=== PATIENT | female | born 1990 | race Caucasian/White ===

== ENCOUNTER → 2017-09-18 | Outpatient (CLI) | payer OTHER ==
--- NOTE | 2017-09-18 09:02 | DIAGNOSTIC IMAGING REPORT ---
THYROID ULTRASOUND HISTORY: TYROID NODULE COMPARISON: None. FINDINGS: Right lobe: 5.7 x 1.6 x 1.2 cm. Multiple nodules. Dominant mildly hypoechoic nodule within the right lobe posteriorly measures 1.2 x 1.0 x 0.8 cm. This contains a few punctate echogenic foci which may represent calcifications. Left lobe: 4.7 x 2.2 x 2.1 cm. Multiple nodules. Dominant nodules are most entirely cystic and measures 2.6 x 1.4 x 1.9 cm. There is also debris, a hypoechoic 1.2 x 0.9 x 0.6 cm nodule containing punctate echogenic foci. Isthmus: 2 mm in thickness. No nodules. IMPRESSION: Multinodular thyroid gland. Dominant right 1.2 cm hypoechoic nodule may contain a few punctate calcifications. Fine-needle aspiration of this lesion is recommended for further evaluation. Electronically signed by: Paxton Gardiner M.D. 09/18/2017 9:00 AM Dictated Date/Time: 09/18/2017 8:57 AM
== END | disposition home or self-care (01) ==
LOC: C.ULTR 08:00
PROVIDERS: ATTEND Family Medicine
DX: E04.2 Nontoxic multinodular goiter (principal); R00.0 Tachycardia, unspecified; R03.0 Elevated blood-pressure reading, without diagnosis of hypertension; R63.4 Abnormal weight loss

== ENCOUNTER → 2017-09-21 | Outpatient (CLI) | payer OTHER ==
--- NOTE | 2017-09-21 15:01 | DIAGNOSTIC IMAGING REPORT ---
ULTRASOUND GUIDED FINE NEEDLE ASPIRATION OF LEFT LOBE CYSTIC LESION CLINICAL HISTORY: CYTOLOGY, FINE NEEDLE ASPIRATE COMPARISON STUDY: Thyroid ultrasound September 18, 2017. PROCEDURE: Sonography of the thyroid gland demonstrated the palpable 2.6 cm cystic lesion within the left thyroid lobe which was targeted for aspiration. Procedure, risks and benefits were discussed with the patient. The patient agreed to the procedure and informed written consent was obtained. The procedure was performed by Dr. Lemons following a timeout. Skin was prepped and draped in sterile fashion and local anesthesia was achieved with 1% lidocaine. Under direct ultrasound guidance, a 25-gauge fine needle aspiration was performed. The lesion was then aspirated to completion with a 22-gauge needle. Samples were deemed preliminarily adequate by pathology. The patient tolerated the procedure well and no immediate complications were evident. IMPRESSION: Successful ultrasound guided fine needle aspiration of 2.6 cm left thyroid lobe cystic lesion. Electronically signed by: Colton Lemons M.D. 09/21/2017 2:59 PM Dictated Date/Time: 09/21/2017 2:57 PM
--- NOTE | 2017-09-21 15:02 | DIAGNOSTIC IMAGING REPORT ---
ULTRASOUND GUIDED FINE NEEDLE ASPIRATION OF 1.2 CM RIGHT LOBE THYROID NODULE CLINICAL HISTORY: Thyroid nodule. COMPARISON STUDY: Thyroid ultrasound September 18, 2017. PROCEDURE: Sonography of the thyroid gland demonstrated the 1.2 cm right lobe thyroid nodule shown on ultrasound of September 18, 2017. This was targeted for fine needle aspiration. The procedure, risks and benefits were discussed with the patient and informed written consent was obtained. The procedure was performed by Dr. Lemons following a timeout. Skin was prepped and draped in sterile fashion and local anesthesia was achieved with 1% lidocaine. Under direct ultrasound guidance, 2 25-gauge fine needle aspirations were performed. Samples were deemed preliminarily adequate by pathology. The patient tolerated the procedure well and no immediate complications were evident. IMPRESSION: Successful ultrasound guided fine needle aspiration of 1.2 cm right lobe thyroid nodule. Electronically signed by: Colton Lemons M.D. 09/21/2017 3:01 PM Dictated Date/Time: 09/21/2017 2:59 PM
== END | disposition home or self-care (01) ==
LOC: C.ULTR 12:43
PROVIDERS: ATTEND Family Medicine
DX: E04.1 Nontoxic single thyroid nodule (principal)

== ENCOUNTER 2022-09-08 07:02 | Inpatient (IN) ==
--- NOTE | 2022-08-27 15:38 | Anesthesiology Consultation ---
Date of Service August 27, 2022 Assessment & Plan (1) Encounter for pre-operative examination: - COVID screening: Per metrologist on 08/27/2022: Travel screen negative, no known COVID-19 positive contacts or current COVID-19 related symptoms in past 2 weeks. To surgeon's discretion if preop COVID testing is needed. Chart Review Chart Review: Acceptable Risk for Surgery and Patient NOT seen in Pre Admission Testing History Surgery Operation Date: 09/08/22 07:30 Proposed Procedures p Section in LD (Delivery of Baby through Abdominal Incision) - Yolie Contreras MD, FACOG Height/Weight Height: 5 ft 4 in Weight: 82.1 kg Allergies Allergy/AdvReac Type Severity Reaction Status Date / Time human papillomavirus Allergy Unknown RASH OVER Verified 08/27/22 14:53 vaccine, quadr ENTIRE BODY [From Gardasil (PF)] Yeast Allergy Unknown SEE NOTES Verified 08/27/22 14:53 Medications Home Medications Medication Instructions Recorded Confirmed Last Taken cetirizine 10 mg tablet (Zyrtec) 10 mg PO HS 01/29/19 08/27/22 03/04/20 docusate sodium 100 mg capsule 100 mg PO HS 09/25/21 08/27/22 Unknown (Colace) prenat.vits,rachele,[id number] 1 tab PO HS 09/25/21 08/27/22 Unknown fluticasone propionate 50 2 spray intranasal UD PRN 06/10/22 08/27/22 Unknown mcg/actuation nasal Congestion spray,suspension breast pump #1 ea 07/03/22 08/21/22 Unknown acetone (urine) test (Ketone Urine #50 ea 07/14/22 08/21/22 Unknown Test strips) blood sugar diagnostic (OneTouch #150 ea 07/14/22 08/21/22 Unknown Verio test strips) blood-glucose meter (OneTouch #1 ea 07/14/22 08/21/22 Unknown Verio Reflect Meter) lancets 33 gauge (OneTouch Delica #150 ea 07/14/22 08/21/22 Unknown Lancets) lansoprazole 30 mg capsule,delayed 30 mg PO HS 08/27/22 08/27/22 Unknown release (Prevacid) Past Medical History Medical History Anxiety NO MEDS FOR/CONTROLLED Attention-deficit disorder Borderline high blood pressure HX OF Environmental allergies MULTIPLE - HX ALLERGY SHOTS - NOT CURRENT Family history of malignant neoplasm of breast Gestational diabetes History of chicken pox Renal calculi HX OF Past Family History Family History Mother Breast cancer, Onset Age: 41 Father Lung cancer Denies family history of Ovarian cancer Prostate cancer Myocardial infarction Colorectal cancer Uterine cancer Past Surgical History Surgical History H/O lithotripsy History of bone marrow biopsy History of intestinal surgery 02/2020 EUA, fistulectomy, seton placement, abscess repair 06/2020 fistula repair at [facility] w/ Dr. Mello 10/2020 different fistula repair w/ Dr. Mello History of urologic surgery X3 FOR KIDNEY STONES Hx of sinus surgery S/P thyroid biopsy HX S/P wisdom tooth extraction HX Status post incision and drainage (01/30/20) I and D left labia 01/30/[address] Villegas Social History Smoking Status: Never smoker Do You Dip or Chew Tobacco: No Hx Alcohol Use: No alcohol intake frequency: holidays/special occasions only Hx Substance Use: No substance use type: does not use
--- NOTE | 2022-09-03 09:12 | History & Physical Report ---
Date of Service September 03, 2022 Assessment & Plan (1) Gestational diabetes mellitus (GDM) affecting , antepartum: (2) Supervision of normal first : Plan Plan for primary c/s. The risks of surgery were discussed with the patient including the risks of anesthesia, bleeding requiring transfusion, infection, poor wound healing, urinary retention, damage to surrounding structures including bowels, bladder, vessels, nerves and ureters that may require further surgery, hospitalization or intervention. The other risks of any surgery were discussed including heart attack, blood clots, stroke or . Discussed risk of injury. Consent reviewed and signed. Questions asked and answered. History of Present Illness Primary Care Provider: Amber Underwood PA-C Patient is a 32yowf with iup at 40 3/7 week for primary elective c/s. Patient has a hx of anal fissures and fistulae and elects to have c/s for delivery. complicated by diet controlled gdm. Last us 08/14 AC 81%, EFW 72% and Delivery Plans Hx thyroid nodules History of anal fissures and fistulae Will want primary C/S to avoid local trauma Schedule at 28wk visit for 39wk -C/S SCHEDULED FOR 09/08/[address] WARD kidney stones 27 weeks [place] [facility] [place]. Needs to get CT scan in hospital per urology GDM w/28wk glucola *Begin monthly Growth US's OB Labs: Blood Type O Positive 01/30/22 Antibody Screen NEGATIVE 01/30/22 Hemoglobin 11.6 g/dl (12.0-16.0) L 06/25/22 Hematocrit 33.5 % (37.0-47.0) L 06/25/22 Mean Corpuscular Volume 88.9 fL (80.0-100.0) 06/10/22 Platelet Count 158 K/uL (130-400) 06/10/22 Rubella IgG Antibody Immune (Immune) 01/30/22 Rapid Plasma Reagin Nonreactive (Nonreactive) 01/30/22 Hepatitis B Surface Antigen. NON-REACTIVE (NON-REACTIVE) 01/30/22 Hepatitis C Antibody (EIA) NON-REACTIVE (NON-REACTIVE) 01/30/22 HIV (1&2) Ag and Ab Confirmation NON-REACTIVE (NON-REACTIVE) 01/30/22 Glucose 1 Hour 50 gm LoadE 166 mg/dl (70-130) H 03/27/22 Maternal Serum Alpha Fetoprotein 70.6 ng/mL 03/27/22 OB Optional Labs: Chlamydia trachomatis RNA Not Detected (NotDetected) 01/30/22 Neisseria gonorrhoeae RNA Not Detected (NotDetected) 01/30/22 Alpha Fetoprotein Triple Screen SEE NOTE 03/27/22 Labs Reviewed: neg cf/sma--ak low risk panorama--ak neg afp--ak passed 16 week 2 hr gtt Allergies Allergy/AdvReac Type Severity Reaction Status Date / Time human papillomavirus Allergy Unknown RASH OVER Verified 09/03/22 15:56 vaccine, quadr ENTIRE BODY [From Gardasil (PF)] Yeast Allergy Unknown SEE NOTES Verified 09/03/22 15:56 Home Medications Medication Instructions Recorded Confirmed Type cetirizine 10 mg tablet (Zyrtec) 10 mg PO HS 01/29/19 09/03/22 History docusate sodium 100 mg capsule 100 mg PO HS 09/25/21 09/03/22 History (Colace) prenat.vits,rachele,[id number]-kmbl-iwbti 1 tab PO HS 09/25/21 09/03/22 History fluticasone propionate 50 2 spray intranasal UD PRN 06/10/22 09/03/22 History mcg/actuation nasal Congestion spray,suspension breast pump #1 ea 07/03/22 09/03/22 Rx acetone (urine) test (Ketone Urine #50 ea 07/14/22 09/03/22 Rx Test strips) blood sugar diagnostic (OneTouch #150 ea 07/14/22 09/03/22 Rx Verio test strips) blood-glucose meter (OneTouch #1 ea 07/14/22 09/03/22 Rx Verio Reflect Meter) lancets 33 gauge (OneTouch Delica #150 ea 07/14/22 09/03/22 Rx Lancets) lansoprazole 30 mg capsule,delayed 30 mg PO HS 08/27/22 09/03/22 History release (Prevacid) Patient History Medical History Anxiety NO MEDS FOR/CONTROLLED Attention-deficit disorder Borderline high blood pressure HX OF Environmental allergies MULTIPLE - HX ALLERGY SHOTS - NOT CURRENT Family history of malignant neoplasm of breast Gestational diabetes History of chicken pox Renal calculi HX OF Surgical History H/O lithotripsy History of bone marrow biopsy History of intestinal surgery 02/2020 EUA, fistulectomy, seton placement, abscess repair 06/2020 fistula [place] [facility] w/ Dr. Mello 10/2020 different fistula repair w/ Dr. Mello History of urologic surgery X3 FOR KIDNEY STONES Hx of sinus surgery S/P thyroid biopsy HX S/P wisdom tooth extraction HX Status post incision and drainage (01/30/20) I and D left labia 01/30/[address] 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: No Beliefs That Will Affect Care: None marital status: marital status details: Karl Bruno (34) [phone] Current Living Situation: Spouse Current Living Situation Comment: lives iwth spouse, no pets current occupational status: employed 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 Feels Safe at Home: Yes Childhood Exposure to Second-Hand Smoke: Yes caffeine: Yes Dental Care, Regularly: Yes Physical Activity Frequency: 3-4 Times per Week Seatbelt Use: always Sunscreen Use: Yes Assistive Devices: Contacts and Glasses CLERK GUIDE History noncontributory Physical Exam Constitutional: WD/WN, vitals as above Respiratory: normal respiratory effort, lungs clear to auscultation Cardiovascular: RRR, no murmur, no edema Gastrointestinal (Abdomen): soft, nt, gravid Psychiatric: A+Ox3, euthymic affect Coding Level of Care Code None Diagnoses Gestational diabetes mellitus (GDM) affecting , antepartum O24.419 Supervision of normal first Z34.00
[~2022-09-08 07:02] MED LIST: CITRIC ACID/SODIUM CITRATE 15 ML UDC PO SCH; LACTATED RINGER'S 1,000 ML IV SCH; cefOXitin 2,000 MG in DEXTROSE 5% 50 ML IV SCH
[2022-09-08] MEDS ORDERED: LACTATED RINGER'S 1,000 ML IV SCH ×2 (07:30→10:48)
[2022-09-08] MEDS ORDERED: ceFAZolin 2000MG 2,000 MG/15 ML SYR IV SCH (07:35)
[2022-09-08 07:53] LABS: Basophils # (auto) 0.04 K/uL (0-0.2); Basophils % (auto) 0.6 %; Eosinophils # (auto) 0.06 K/uL (0-0.50); Eosinophils % (auto) 0.9 %; Hematocrit (blood only) 33.5 % (37.0-47.0); Hemoglobin 11.4 g/dl (12.0-16.0); Immature Granulocytes % (auto) 3.1 %; Lymphocytes % (auto) 34.6 %; Mean Corpuscular Hemoglobin 28.7 pg (25.0-34.0); Mean Corpuscular Volume 84.4 fL (80.0-100.0); Mean Platelet Volume 10.6 fL (9.4-12.4); Monocytes # (auto) 0.61 K/uL (0.11-0.59); Monocytes % (auto) 9.6 %; Neutrophils # (auto) 3.25 K/uL (1.40-6.50); Neutrophils % (auto) 51.2 %; Platelet Count 107 K/uL (130-400); RDW Coefficient of Variation 14.6 % (11.5-14.5); RDW Standard Deviation 44.5 fL (36.4-46.3); Red Blood Count 3.97 M/uL (4.20-5.40); White Blood Count 6.36 K/ul (4.8-10.8)
[2022-09-08] MEDS ORDERED: MoRPHine SULFATE PF 1 MG/ML 10 ML AMP/VIAL ONE (08:53)
[2022-09-08] MEDS ORDERED: OXYTOCIN 10 UNITS/ML VIAL ONE (08:53)
[2022-09-08] MEDS ORDERED: fentaNYL citrate PF 100 MCG/2 ML VIAL ONE (08:53)
[2022-09-08] MEDS ORDERED: PHENYLEPHRINE HCL 10 MG/ML VIAL ONE (08:53)
[2022-09-08 10:43] LABS: Base Excess Cord Arterial Bld -2.8 mEq/L (-9-1.8); CO2 Cord Arterial Blood 58 mmHg (39.1-73.5); HCO3 Cord Arterial Blood 25 mmol/L (19.7-28.5); Oxygen Sat Cord Arterial Blood < 60.0 % (<60); PO2 Cord Arterial Blood 12 mmHg (4.1-31.7); pH Cord Arterial Blood 7.25 (7.1-7.38)
[2022-09-08 10:46] LABS: Base Excess Cord Venous Blood -3.1 mEq/L (-7.7-1.9); Cord Venous Blood HCO3 22 mmol/L (18.4-26.8); Cord Venous Blood PCO2 39 mmHg (30.4-57.2); Cord Venous Blood PO2 32 mmHg (14.1-43.3); Cord Venous Blood pH 7.36 (7.20-7.44); O2 Saturation Cord Venous Bld 66.6 % (<68)
--- NOTE | 2022-09-08 10:46 | Operative Report ---
PG Post Operative Report Pre & Post Diagnosis Operation Date: 09/08/22 08:50 Pre-Op Diagnosis: Intrauterine at 39 weeks. Desires primary section. Post-Op Diagnosis: Intrauterine at 39 weeks. Desires primary section. Delivery of live male child at 1009. I identified the patient and participated in the time-out.: Yes Procedure Operation Date: 09/08/22 08:50 Actual Procedures p Primary low transverse Section in LD (Delivery of Baby through Abdominal Incision), delivery of live male child at 1009 - Yolie Contreras MD, FACOG Surgeon Yolie Contreras MD, FACOG Data Integrity Analyst DR. Kurtz Estimated Blood Loss 600 Findings Consistent with Post-Op Diagnosis viable male infant in cephalic presentation. meconium noted on arom. apgars 8/9. uterus /tubes/ovs normal bilaterally. Fluids 1600cc uop--50cc, clear Specimens placenta Drains north Anesthesia Type Spinal Complications none Disposition Accompanied Patient To Recovery: Yes Disposition: L&D Indications Patient is a 32yowf who desires primary elective c/s. Description of Procedure The patient was taken to the operating room where she was identified verbally and by bracelet. She was seated on the operating table where a spinal anesthetic was placed by anesthesia. She was then placed in the supine position with a leftward tilt. A North catheter was placed sterilely. the patient was prepped and draped in a normal standard fashion. the anesthetic was tested and found to be adequate. A time-out was held, identifying correct patient, procedure, positioning and preoperative antibiotics. There were no concerns. A Pfannenstiel skin incision was made with a knife and taken down to the underlying layer of fascia with the knife and Bovie electrocautery. Bleeding was attended to with the Bovie. The fascia was incised in the midline with the knife and taken out laterally with scissors. The superior edge of the fascial incision was grasped, elevated and the underlying layer of rectus muscle was taken off bluntly and with scissors. In a similar fashion, the inferior edge of the fascial incision was grasped, elevated and the underlying layer of rectus muscle was taken off bluntly and with scissors. The muscles were bluntly in the midline. The peritoneum was entered bluntly. The incision was then stretched. The bladder blade was placed. The vesicouterine peritoneum was identified, entered with scissors and taken out laterally with scissors. The bladder flap was created digitally A hysterotomy incision was scored with a knife and the incision was stretched superiorly and inferiorly with the planer operator's fingers. Meconium noted on entering the uterus. The operators hand was placed into the incision and the head was delivered atraumatically. No nuchal cord. The nose and mouth were bulb suctioned. the rest of the was then delivered without difficulty. The nose and mouth were again bulb suctioned. The cord was clamped and cut and the was then handed off to the awaiting landman for drying and attention. Cord blood and segment were obtained. The placenta was expressed with uterine massage. The uterus was exteriorized an d cleared of all clot and debris with moistened laparotomy sponges. The hysterotomy incision was repaired in two layers, the first in a running locked layer, the second in an imbricating layer. Hemostasis was noted to be good. Posterior cul-de-sac was irrigated and cleared of all clot and debris. The hysterotomy incision was again inspected and found to be hemostatic. the uterus was reinteriorized. Hysterotomy incision was again inspected and found to be hemostatic. Rectus muscles were reapproximated with several interrupted stitches of 0 Vicryl. The fascia was then reapproximated with 0 Vicryl starting at the edges and meeting in the midline. The subcuticular tissues were copiously irrigated and bleeding was attended to with cautery. The skin was then closed with 4-0 Vicryl in a subcuticular fashion. All sponge, lap and needle counts correct x 2. The patient was taken to recovery in stable condition. I attest to the content of the Intraoperative Record and any orders documented therein. Any exceptions are noted below.
[2022-09-08] MEDS ORDERED: diphenhydrAMINE 50 MG/ML VIAL IV PRN (10:47)
[2022-09-08] MEDS ORDERED: ONDANSETRON INJ 2 MG/ML 2 ML VIAL IV PRN ×2 (10:47→10:48)
[2022-09-08] MEDS ORDERED: NALOXONE HCL 1 MG in SODIUM CHLORIDE 0.9% 1000ML 1,000 ML IV PRN (10:47)
[2022-09-08] MEDS ORDERED: HYDROmorphone INJ 0.5 MG/0.5 ML SYR IV PRN (10:47)
[2022-09-08] MEDS ORDERED: NALBUPHINE HCL INJ 10 MG/ML AMP IV PRN (10:47)
[2022-09-08] MEDS ORDERED: MoRPHine SULFATE PF 1 MG/ML 10 ML AMP/VIAL INT SPINAL ONE (10:47)
[2022-09-08] MEDS ORDERED: NALOXONE HCL 0.4 MG/1 ML VIAL/CARP IV PRN (10:47)
[2022-09-08] MEDS ORDERED: LACTATED RINGER'S 500 ML IV PRN (10:47)
[2022-09-08] MEDS ORDERED: ePHEDrine sulfate 50 MG/ML AMP IV PRN (10:47)
[2022-09-08] MEDS ORDERED: NALOXONE HCL 0.08 MG in SYRINGE 1.8 ML IV PRN (10:47)
[2022-09-08] MEDS ORDERED: BENZOCAINE 20% SPRY 85 APPLN/85 GM CAN EXT PRN (10:48)
[2022-09-08] MEDS ORDERED: HYDROCORTISONE ACETATE 25 MG SUPP PR PRN (10:48)
[2022-09-08] MEDS ORDERED: MAGNESIUM HYDROXIDE SUSP 30 ML UDC PO PRN (10:48)
[2022-09-08] MEDS ORDERED: SENNA 8.6 MG TAB PO PRN (10:48)
[2022-09-08] MEDS ORDERED: DIPHTHERIA/TETANUS/PERTUSSIS Vaccine (Tdap, Age 7+yrs) 0.5mL SYR/VL IM ONE (10:48)
[2022-09-08] MEDS ORDERED: FLUTICASONE PROPIONATE NA SPR 16 GM BTL PRN (10:48)
[2022-09-08] MEDS ORDERED: NO NARCOTICS OR SEDATIVES SCH (11:00)
[2022-09-08] MEDS ORDERED: SODIUM CHLORIDE 0.9% 1000ML 1,000 ML IV SCH (11:00)
[2022-09-08] MEDS ORDERED: DC INTRASPINAL MORPHINE SCH (11:00)
--- NOTE | 2022-09-08 11:18 | Anesthesiology Progress Note ---
Date of Service September 08, 2022 Anesthesia Post Procedure Vital Signs Vital Signs: Temp Pulse Resp BP Pulse Ox 09/08/22 10:50 18 09/08/22 10:40 36.7 C 20 09/08/22 08:15 36.8 C 74 18 137/91 09/08/22 11:15 83 98 09/08/22 11:10 82 114/73 98 09/08/22 11:05 68 97 09/08/22 11:00 98 09/08/22 11:00 79 09/08/22 11:00 77 121/70 09/08/22 10:55 85 98 09/08/22 10:50 64 111/70 98 09/08/22 10:45 81 96 09/08/22 10:40 86 110/68 99 09/08/22 07:45 18 09/08/22 07:45 36.9 C 18 09/08/22 07:47 74 137/91 Transfer of Care Handoff Completed per policy Notes Mental Status: alert / awake / arousable and participated in evaluation Patient Amnestic to Procedure: Yes Nausea / Vomiting: adequately controlled Pain: adequately controlled Airway Patency, RR, SpO2: stable & adequate BP & HR: stable & adequate Hydration State: stable & adequate Neuraxial Anesthesia: was administered and sensory block is resolving Anesthetic Complications: no major complications apparent and Pt Satisfied with anesthetic care
[2022-09-08] MEDS: OXYTOCIN 20 UNITS in LACTATED RINGER'S 1,000 ML IV SCH ×2 (11:20→19:21)
[2022-09-08] MEDS: KETOROLAC 30 MG/ML VIAL IV PRN (19:42)
[2022-09-08] MEDS: CETIRIZINE HCL 10 MG TABLET PO SCH (20:40)
[2022-09-08] MEDS: DOCUSATE SODIUM 100 MG CAP PO SCH (20:40)
[2022-09-08] MEDS: SIMETHICONE 80 MG CHEW PO SCH (20:41)
[2022-09-08] MEDS: PANTOprazole 40 MG TAB PO SCH (20:41)
[2022-09-09] MEDS: KETOROLAC 30 MG/ML VIAL IV PRN (00:35)
[2022-09-09] MEDS ORDERED: diphenhydrAMINE 50 MG/ML VIAL IV PRN (04:50)
[2022-09-09] MEDS ORDERED: diphenhydrAMINE Capsule 25 MG CAP PO PRN (04:50)
[2022-09-09] MEDS ORDERED: PROMETHAZINE HCL 25 MG in SODIUM CHLORIDE 0.9% 50 ML IV PRN (04:50)
[2022-09-09] MEDS ORDERED: KETOROLAC 30 MG/ML VIAL IV PRN (04:50)
[2022-09-09] MEDS: oxyCODONE/ACETAMINOPHEN 5mg/325mg TAB PO PRN ×4 (05:00→20:27)
[2022-09-09] MEDS: IBUPROFEN 600 MG TAB PO PRN ×4 (05:01→20:28)
[2022-09-09] MEDS ORDERED: CITRIC ACID/SODIUM CITRATE 15 ML UDC PO SCH (06:00)
[2022-09-09 06:48] LABS: Basophils # (auto) 0.02 K/uL (0-0.2); Basophils % (auto) 0.3 %; Eosinophils # (auto) 0.05 K/uL (0-0.50); Eosinophils % (auto) 0.9 %; Hematocrit (blood only) 26.6 % (37.0-47.0); Immature Granulocytes # (auto) 0.14 K/uL (0.01-0.20); Immature Granulocytes % (auto) 2.4 %; Lymphocytes # (auto) 1.65 K/uL (1.2-3.4); Lymphocytes % (auto) 28.2 %; Mean Corpuscular Hemoglobin 29.4 pg (25.0-34.0); Mean Corpuscular Hgb Conc 33.8 g/dL (32.0-36.0); Mean Corpuscular Volume 86.9 fL (80.0-100.0); Mean Platelet Volume 10.1 fL (9.4-12.4); Monocytes # (auto) 0.54 K/uL (0.11-0.59); Monocytes % (auto) 9.2 %; Neutrophils # (auto) 3.46 K/uL (1.40-6.50); Platelet Count 95 K/uL (130-400); Platelet Estimate Decreased (Normal); Polychromasia 1+; RDW Coefficient of Variation 14.6 % (11.5-14.5); RDW Standard Deviation 45.5 fL (36.4-46.3); Red Blood Count 3.06 M/uL (4.20-5.40); White Blood Count 5.86 K/ul (4.8-10.8)
[2022-09-09] MEDS: FERROUS SULFATE 325 MG TAB PO SCH (08:03)
[2022-09-09] MEDS: SIMETHICONE 80 MG CHEW PO SCH ×3 (08:03→20:27)
[2022-09-09] MEDS: PRENATAL VITAMIN 1 TAB PO SCH (08:03)
[2022-09-09] MEDS: DOCUSATE SODIUM 100 MG CAP PO SCH ×2 (08:03→20:27)
[2022-09-09 08:04] LABS: Albumin Globulin Ratio 1.5 (0.9-2); Albumin Level 2.6 gm/dl (3.4-5.0); BUN Creatinine Ratio 18.2 (10-20); Bilirubin,Total 0.3 mg/dl (0.2-1.0); Calcium 8.2 mg/dl (8.6-10.3); Creatinine Clr Calc Pharmacy 150.8 ml/min; Est GFR (African American) 142.8 ml/min; Est GFR (Non-African American) 123.2 ml/min; Globulin 1.7 gm/dl (2.5-4.0); Potassium 4.1 mmol/L (3.5-5.1); Total Protein 4.3 gm/dl (6.0-8.3)
--- NOTE | 2022-09-09 08:27 | Obstetrical Progress Note ---
Date of Service <Alisia Coyle MD - Last Filed: 09/09/22 08:27> September 09, 2022 Assessment & Plan <Alisia Coyle MD - Last Filed: 09/09/22 08:27> (1) delivery delivered: Patient with the above mentioned history and findings was evaluated at bedside and found awake, alert, oriented in all spheres, afebrile, and in no acute distress. Due to her complaint of right sided pain in addition to her low platelets (decreased from 107 to 95 today), will order CMP to assess liver enzymes to r/o HELLP syndrome as a cause of her thrombocytopenia. Otherwise, patient is progressing well. Therefore, will encourage ambulation as tolerated and will resume regular diet. Will continue monitoring pain levels and management with current regimen. Patient is encouraged to breastfeed and to notify changes in normal lochia such as excessive bleeding (using more than 1 pad per hour), foul smell, or purulent appearance. Will continue to monitor. All questions were answered. <Phoebe Kurtz DO - Last Filed: 09/09/22 09:09> (1) delivery delivered: Subjective <Alisia Coyle MD - Last Filed: 09/09/22 08:27> Stephanie is a 32 y/o female who is POD #1 following delivery at 40 3/7 weeks. She reports feeling well overall this morning. Refers moderate abdominal pain that is more pronounced on her right side. She also refers moderate abdominal cramping & 4/10 pain well managed on analgesics. She denies headaches, vision changes, SOB, or ahy other symptom. North was removed this morning and she has not been able to void spontaneously. Voiding through north normally prior to removal. Tolerating meals overnight and able to ambulate some. She is passing gas but has not had a bowel movement yet. Has some persistent lochia with some improvement this morning. Currently breast feeding and supplementing with bottle feeds. Blood type is O positive and recent Hb at 9.0. She is GBS negative and rubella immune. Constitutional: no fever, no chills or no sweats Denies shortness of breath or difficulty breathing. Cardiovascular: no chest pain or no palpitations Breast: no breast pain Genitourinary (female): no dysuria Neurologic: no headache(s) Denies changes in vision. Physical Exam <Alisia Coyle MD - Last Filed: 09/09/22 08:27> General: Alert. Oriented to person, time, and place. Afebrile. No acute distress. Eyes: pupils equal and reactive to light bilaterally, extraocular movements intact. Cardiac: Regular rate and rhythm, no murmurs/rubs/gallops. Respiratory: Clear to auscultation bilaterally a/p, no wheezes/rales/rhonchi. No increased work of breathing. Symmetrical chest rise. No respiratory distress. Abdomen: Soft, tenderness on right side, nondistended. Bowel sounds present. Low transverse surgical scar clean, without surrounding erythema or suppuration, and healing well. Uterus: Uterine fundus firm, mildly tender, and palpable cm below umbilicus. Lower Extremities: Bilateral lower extremity swelling without pitting. No deep calf pain. Salinas's negative bilaterally. Psych: Euthymic affect. Mood and affect congruence. Regular speech rate and content. Results & Data <Alisia Coyle MD - Last Filed: 09/09/22 08:27> Vital Signs (Past 12 Hours) Vital Signs Temp Pulse Resp BP Pulse Ox O2 Del Method 09/09/22 04:47 18 100 09/09/22 04:47 36.9 C 93 H 18 138/96 100 Room Air 09/09/22 03:20 18 100 09/09/22 02:20 18 97 09/09/22 01:30 16 96 09/09/22 00:30 20 99 09/08/22 23:30 36.8 C 88 20 137/89 100 Room Air 09/08/22 23:30 20 98 09/08/22 22:30 16 98 09/08/22 21:34 18 97 09/08/22 20:30 16 100 <Phoebe Kurtz DO - Last Filed: 09/09/22 09:09> Co-Signing Physician Notes Resident Physician Supervision Note: I was present with Dr. Coyle during the history and exam. I discussed the case with the resident and agree with the findings and plan as documented in the note. Any exceptions or clarifications are listed here: POD#1 doing well, platelets 95 - ordered CMP to eval for preeclampsia/HELLP syndrome. No symptoms. Documented By: Phoebe Kurtz DO Resident Activity Tracking <Alisia Coyle MD - Last Filed: 09/09/22 08:27> Resident Involvement: Resident Care Provided Care Provided: OB Delivery
[2022-09-09] MEDS ORDERED: bisacodyL 5 MG TABEC PO SCH (20:00)
[2022-09-09] MEDS: CETIRIZINE HCL 10 MG TABLET PO SCH (20:27)
[2022-09-09] MEDS: PANTOprazole 40 MG TAB PO SCH ×2 (20:27→20:45)
[2022-09-10] MEDS: oxyCODONE/ACETAMINOPHEN 5mg/325mg TAB PO PRN ×5 (04:08→22:16)
[2022-09-10] MEDS: IBUPROFEN 600 MG TAB PO PRN ×5 (04:09→22:17)
[2022-09-10 06:39] LABS: Hematocrit (blood only) 28.1 % (37.0-47.0); Hemoglobin 9.3 g/dl (12.0-16.0)
--- NOTE | 2022-09-10 07:06 | Obstetrical Progress Note ---
Date of Service <Alisia Coyle MD - Last Filed: 09/10/22 07:06> September 10, 2022 Assessment & Plan <Alisia Coyle MD - Last Filed: 09/10/22 07:06> (1) delivery delivered: Patient with the above mentioned history and findings was evaluated at bedside and found awake, alert, oriented in all spheres, afebrile, and in no acute distress. Patient is progressing well and reaching expected milestones in her recovery. CMP with no significant electrolyte imbalances, and liver enzymes and renal markers are within normal range. Will encourage ambulation as tolerated and will resume regular diet. Will continue monitoring pain levels and management with current management. Abdominal binder will also be ordered to help in controlling her pain during ambulation. Patient is encouraged to breastfeed and to notify changes in normal lochia such as excessive bleeding (using more than 1 pad per hour), foul smell, or purulent appearance. All questions were answered. <Geno Stevens MD - Last Filed: 09/10/22 07:12> (1) delivery delivered: Subjective <Alisia Coyle MD - Last Filed: 09/10/22 07:06> Stephanie is a 32 y/o female who is POD #2 following delivery at 40 3/7 weeks. She reports feeling well overall this morning. Refers moderate abdominal pain that is more pronounced on her right lower side. She also refers moderate abdominal cramping & 4/10 pain well managed on analgesics. Her pain is increased when standing and walking (6/10 in intensity). She denies headaches, vision changes, SOB, or any other symptom. She is voiding spontaneously without issues. Tolerating meals overnight and able to ambulate some. She is passing gas and has had a bowel movement. Has some persistent lochia with some improvement this morning. Currently breast feeding. Blood type is O positive and today's Hb at 9.3. She is GBS negative and rubella immune. Constitutional: no fever, no chills or no sweats Denies shortness of breath or difficulty breathing. Cardiovascular: no chest pain or no palpitations Breast: no breast pain Genitourinary (female): no dysuria Neurologic: no headache(s) Denies changes in vision. Physical Exam <Alisia Coyle MD - Last Filed: 09/10/22 07:06> General: Alert. Oriented to person, time, and place. Afebrile. No acute distress. Eyes: pupils equal and reactive to light bilaterally, extraocular movements intact. Cardiac: Regular rate and rhythm, no murmurs/rubs/gallops. Respiratory: Clear to auscultation bilaterally a/p, no wheezes/rales/rhonchi. No increased work of breathing. Symmetrical chest rise. No respiratory distress. Abdomen: Soft, tenderness on RLQ, nondistended. Bowel sounds present on all quadrants. Low transverse surgical scar clean, without surrounding erythema or suppuration, and healing well. Uterus: Uterine fundus firm, mildly tender, and palpable cm below umbilicus. Lower Extremities: Bilateral lower extremity swelling without pitting. No deep calf pain. Salinas's negative bilaterally. Psych: Euthymic affect. Mood and affect congruence. Regular speech rate and content. Results & Data <Alisia Coyle MD - Last Filed: 09/10/22 07:06> Vital Signs (Past 12 Hours) Vital Signs Temp Pulse Resp BP Pulse Ox O2 Del Method 09/09/22 23:10 36.7 C 80 18 128/86 97 Room Air 09/09/22 19:15 36.6 C 80 16 126/86 100 Room Air <Geno Stevens MD - Last Filed: 09/10/22 07:12> Co-Signing Physician Notes Resident Physician Supervision Note: I interviewed and examined the patient. Discussed with Dr. Coyle and agree with findings and plan as documented in the note. Any exceptions or clarifications are listed here: POD2 s/p pLTCS. Having some pain superolateral to incision, seems like where suture knots from fascia would be. Notes some discomfort w/ getting up, pain meds helped but she was trying to only take one due to concerns for constipation. VSS, exam benign and wnl. Incision c/d/i. Discussed using pain meds, bowel regimen meds to help. Will order abd binder to see if will help as well Documented By: Geno Stevens MD Resident Activity Tracking <Alisia Coyle MD - Last Filed: 09/10/22 07:06> Resident Involvement: Resident Care Provided Care Provided: OB Delivery
[2022-09-10] MEDS: SIMETHICONE 80 MG CHEW PO SCH ×4 (08:29→22:17)
[2022-09-10] MEDS: FERROUS SULFATE 325 MG TAB PO SCH (08:29)
[2022-09-10] MEDS: DOCUSATE SODIUM 100 MG CAP PO SCH ×2 (08:29→22:17)
[2022-09-10] MEDS: PRENATAL VITAMIN 1 TAB PO SCH (08:30)
[2022-09-10] MEDS ORDERED: bisacodyL 10 MG SUPP PR PRN (10:29)
--- NOTE | 2022-09-10 10:33 | CT Scan Report ---
CT SCAN OF THE ABDOMEN AND PELVIS WITHOUT IV CONTRAST CLINICAL HISTORY: Low back pain. Lower abdominal pain. Recent section delivery. COMPARISON STUDY: Renal ultrasound dated 06/10/2022. TECHNIQUE: CT scan of the abdomen and pelvis is performed from the lung bases to the proximal femora. Images are reviewed in the axial, sagittal, and coronal planes. IV contrast was not administered for this examination. A dose lowering technique was utilized adhering to the principles of ALARA. CT DOSE: 1308.72 mGy.cm FINDINGS: Lung bases: The heart is normal in size and without pericardial effusion. The lung bases are clear. Liver: The unenhanced liver is normal in size, contour, and attenuation. There is no intrahepatic lyssa iary ductal dilatation. Gallbladder: Unremarkable. Spleen: The spleen is enlarged measuring 15.2 cm in length. A 14 mm cystic focus in the spleen on seven ge #42 is of doubtful significance. Pancreas: Unremarkable. Adrenal glands: Unremarkable. Kidneys: The unenhanced kidneys are normal in size and without hydronephrosis. There are no renal rachele culi identified. There is no evidence of contour deforming renal mass lesion. Abdominal vasculature: The abdominal aorta is normal in course and caliber. Bowel: There is mild to moderate colonic fecal retention. No bowel obstruction is seen. The appendix is well-visualized and normal. Peritoneum: There is trace intraperitoneal free air below the diaphragm, as well as punctate foci of intraperitoneal free air in the pelvis. No abdominal ascites is seen. There is a small fat-containing helical hernia. There is diastases of the rectus musculature with protrusion of abdominal contents. Periumbilical induration is likely related to recent surgery. Postsurgical change is seen in the vent ral wall at the pelvis. Lymphadenopathy: None. Pelvic viscera: The bladder is distended and appears mildly thick walled. The postgravid uterus is en larged and heterogeneous. Foci of gas and hyperdense hemorrhage are seen throughout the endometrial c anal. A section defect is seen in the anterior lower uterine segment. Skeletal structures: No lytic or blastic lesions are seen. IMPRESSION: 1. The postgravid uterus is enlarged and heterogeneous, with foci of gas and a moderate to large amou nt of hemorrhage seen throughout the endometrial canal. Correlate clinically. 2. Small foci of intraperitoneal free air are nonspecific and likely due to recent surgery. 3. No renal calculi are identified as clinically queried. 4. Splenomegaly. 5. Additional findings as above. ACT 112: Negative or not required by law. Electronically signed by: Wilfredo Garzon M.D. 09/10/2022 10:31 AM
[2022-09-10 13:40] LABS: Hematocrit (blood only) 26.9 % (37.0-47.0); Hemoglobin 8.9 g/dl (12.0-16.0); Mean Corpuscular Hemoglobin 29.5 pg (25.0-34.0); Mean Corpuscular Hgb Conc 33.1 g/dL (32.0-36.0); Mean Corpuscular Volume 89.1 fL (80.0-100.0); Platelet Count 126 K/uL (130-400); RDW Standard Deviation 47.6 fL (36.4-46.3); Red Blood Count 3.02 M/uL (4.20-5.40)
[2022-09-10 13:56] LABS: Albumin Globulin Ratio 1.4 (0.9-2); Albumin Level 2.8 gm/dl (3.4-5.0); BUN Creatinine Ratio 18.2 (10-20); Bilirubin,Total 0.2 mg/dl (0.2-1.0); Calcium 8.3 mg/dl (8.6-10.3); Creatinine Clr Calc Pharmacy 107.7 ml/min; Est GFR (African American) 117.6 ml/min; Est GFR (Non-African American) 101.4 ml/min; Potassium 4.2 mmol/L (3.5-5.1); Total Protein 4.8 gm/dl (6.0-8.3)
--- NOTE | 2022-09-10 14:15 | Obstetrical Progress Note ---
Date of Service September 10, 2022 Assessment & Plan (1) delivery delivered: Plan A couple of isolated blood pressures in setting of normal labs and no s/s of pet. Pressures are mildly elevated and not in severe range. Will continue to monitor and see what her pressures do. Explained situation to the patient. Subjective Nursing called to notify me of elevated blood pressure of 150/80s. She is currently asx. She notes a haley this am but resolved. No vision changes, no ruq pain. Notes her surgical pain is fairly well controlled. Patient does note that in 2018 she had a brief period where she was evaluated for elevated blood pressures and was on a medication for a very short time, <1 month. No issues since that time. Physical Exam labs --h/h stable , plts have recovered to 126K cmp is wnl Constitutional WD/WN, vitals as above Cardiovascular Extremities: no calf tenderness and no edema Gastrointestinal (Abdomen) soft, nd, appropriately tender for post op. When I press into the ruq she has the same response to this as pushing in the left upper quadrant. Neurologic +3/2 dtrs. Psychiatric A+Ox3, euthymic affect Results & Data Vital Signs (Past 12 Hours) Vital Signs Temp Pulse Resp BP Pulse Ox O2 Del Method 09/10/22 08:30 36.8 C 76 18 154/87 H 99 Room Air
[2022-09-10] MEDS: CETIRIZINE HCL 10 MG TABLET PO SCH (22:16)
[2022-09-10] MEDS: PANTOprazole 40 MG TAB PO SCH (22:45)
[2022-09-11] MEDS: oxyCODONE/ACETAMINOPHEN 5mg/325mg TAB PO PRN ×2 (06:45→13:29)
[2022-09-11] MEDS: IBUPROFEN 600 MG TAB PO PRN ×2 (06:46→12:41)
--- NOTE | 2022-09-11 06:58 | Obstetrical Progress Note ---
Date of Service <Alisia Coyle MD - Last Filed: 09/11/22 07:34> September 11, 2022 Assessment & Plan <Alisia Coyle MD - Last Filed: 09/11/22 07:34> (1) delivery delivered: Patient with the above mentioned history and findings was evaluated at bedside and found awake, alert, oriented in all spheres, afebrile, and in no acute distress. Overall, patient is progressing well. Will continue to monitor blood pressure as there have been some elevated readings since yesterday. Should they remain elevated, will consider adding anti-hypertensive. Otherwise, will encourage ambulation as tolerated and will resume regular diet. Will continue monitoring pain levels and management. Patient is encouraged to breastfeed and to notify changes in normal lochia such as excessive bleeding (using more than 1 pad per hour), foul smell, or purulent appearance. All questions were answered. <Yolie Contreras MD, FACOG - Last Filed: 09/11/22 07:36> (1) delivery delivered: Subjective <Alisia Coyle MD - Last Filed: 09/11/22 07:34> Stephanie is a 32 y/o female who is POD #3 following delivery at 40 3/7 weeks. She reports feeling well overall this morning. Refers moderate abdominal pain that is more pronounced on her right lower side. She also refers moderate abdominal cramping & 4/10 pain well managed on analgesics. She denies headaches, vision changes, SOB, or any other symptom. She is voiding spontaneously without issues. Tolerating meals overnight and able to ambulate some. She is passing gas and has had a bowel movement. Has some persistent lochia with some improvement this morning. Currently breast feeding. Blood type is O positive and today's Hb at 8.9. She is GBS negative and rubella immune. Constitutional: no fever, no chills or no sweats Denies vision changes. Denies SOB or respiratory difficulty. Cardiovascular: no chest pain or no palpitations Breast: no breast pain Genitourinary (female): no dysuria Neurologic: no headache(s) Physical Exam <Alisia Coyle MD - Last Filed: 09/11/22 07:34> General: Alert. Oriented to person, time, and place. Afebrile. No acute distress. Eyes: pupils equal and reactive to light bilaterally, extraocular movements intact. Cardiac: Regular rate and rhythm, no murmurs/rubs/gallops. Respiratory: Clear to auscultation bilaterally a/p, no wheezes/rales/rhonchi. No increased work of breathing. Symmetrical chest rise. No respiratory distress. Abdomen: Soft, tenderness on RLQ, nondistended. Bowel sounds present on all quadrants. Low transverse surgical scar clean, without surrounding erythema or suppuration, and healing well. Uterus: Uterine fundus firm, mildly tender, and palpable below umbilicus. Lower Extremities: Bilateral lower extremity swelling without pitting. No deep calf pain. Salinas's negative bilaterally. Psych: Euthymic affect. Mood and affect congruence. Regular speech rate and content. Results & Data <Alisia Coyle MD - Last Filed: 09/11/22 07:34> Vital Signs (Past 12 Hours) Vital Signs Temp Pulse Resp BP Pulse Ox O2 Del Method 09/10/22 23:05 36.8 C 73 16 149/92 H 99 Room Air 09/10/22 19:35 36.8 C 80 16 145/86 H 99 Room Air <Yolie Contreras MD, FACOG - Last Filed: 09/11/22 07:36> Co-Signing Physician Notes Resident Physician Supervision Note: I interviewed and examined the patient. Discussed with Dr. Coyle and agree with findings and plan as documented in the note. Any exceptions or clarifications are listed here: Doing well. no s/s of pet. BPS have been borderline. Will see how they are this am, consider antihypertensive if needed. If pressure ok, can d/c. Short visit for bp check. Documented By: Yolie Contreras MD, FACOG Resident Activity Tracking <Alisia Coyle MD - Last Filed: 09/11/22 07:34> Resident Involvement: Resident Care Provided Care Provided: OB Delivery
[2022-09-11] MEDS: DOCUSATE SODIUM 100 MG CAP PO SCH (08:54)
[2022-09-11] MEDS: FERROUS SULFATE 325 MG TAB PO SCH (08:54)
[2022-09-11] MEDS: SIMETHICONE 80 MG CHEW PO SCH ×2 (08:54→12:41)
[2022-09-11] MEDS: PRENATAL VITAMIN 1 TAB PO SCH (08:54)
[2022-09-11] MEDS ORDERED: IBUPROFEN 600 MG TAB PO PRN (09:02)
[2022-09-11] MEDS ORDERED: KETOROLAC 30 MG/ML VIAL IV PRN (09:02)
[2022-09-11] MEDS ORDERED: ONDANSETRON INJ 2 MG/ML 2 ML VIAL IV PRN (09:02)
[2022-09-11] MEDS ORDERED: SIMETHICONE 80 MG CHEW PO PRN (09:02)
[2022-09-11] MEDS ORDERED: ACETAMINOPHEN 325 MG TAB PO PRN (09:02)
[2022-09-11] MEDS ORDERED: NIFEdipine EXTENDED REL 30 MG TABCR PO STA (09:51)
--- NOTE | 2022-09-15 08:28 | Discharge Summary ---
Date of Service September 15, 2022 Admission HPI Per Admitting Provider Patient is a 32yowf with iup at 40 3/7 week for primary elective c/s. Patient has a hx of anal fissures and fistulae and elects to have c/s for delivery. complicated by diet controlled gdm. Last us 08/14 AC 81%, EFW 72% and Delivery Plans Hx thyroid nodules History of anal fissures and fistulae Will want primary C/S to avoid local trauma Schedule at 28wk visit for 39wk -C/S SCHEDULED FOR 09/08/[address] WARD kidney stones 27 weeks [place]t [facility] [place]. Needs to get CT scan in hospital per urology GDM w/28wk glucola *Begin monthly Growth US's OB Labs: Blood Type O Positive 01/30/22 Antibody Screen NEGATIVE 01/30/22 Hemoglobin 11.6 g/dl (12.0-16.0) L 06/25/22 Hematocrit 33.5 % (37.0-47.0) L 06/25/22 Mean Corpuscular Volume 88.9 fL (80.0-100.0) 06/10/22 Platelet Count 158 K/uL (130-400) 06/10/22 Rubella IgG Antibody Immune (Immune) 01/30/22 Rapid Plasma Reagin Nonreactive (Nonreactive) 01/30/22 Hepatitis B Surface Antigen. NON-REACTIVE (NON-REACTIVE) 01/30/22 Hepatitis C Antibody (EIA) NON-REACTIVE (NON-REACTIVE) 01/30/22 HIV (1&2) Ag and Ab Confirmation NON-REACTIVE (NON-REACTIVE) 01/30/22 Glucose 1 Hour 50 gm Load 166 mg/dl (70-130) H 03/27/22 Maternal Serum Alpha Fetoprotein 70.6 ng/mL 03/27/22 OB Optional Labs: Chlamydia trachomatis RNA Not Detected (NotDetected) 01/30/22 Neisseria gonorrhoeae RNA Not Detected (NotDetected) 01/30/22 Alpha Fetoprotein Triple Screen SEE NOTE 03/27/22 Labs Reviewed: neg cf/sma--[facility] low risk panorama--[facility] neg afp--[facility] passed 16 week 2 hr gtt Discharge Data Consultations 09/08/22 07:21 Consult Anesthesiology Stat Procedures Performed Operation Date: 09/08/22 08:50 Actual Procedures p Section in LD (Delivery of Baby through Abdominal Incision), delivery of live male child at 1009 - Yolie Ward MD, [facility] Course (1) delivery delivered: Plan Patient was admitted and underwent a primary elective without complications. EBL 600cc. Her postoperative course was uncomplicated--tolerated a regular diet, ambulated without difficulty, voided after her north and tolerated oral pain meds. Patient had some calf tenderness on postop day one with a negative lower extremity doppler. Patient had some mildly elevated blood pressures over her course. Labs were wnl and she had no s/s of pet. Patient was admitted with plts of 107 and dropped to 95 after surgery. However, recovered to 126 on Day 2. Patient was d/c on postop day #3, 83, with routine instructions. To f/u in the office for bp check next week. Coding Level of Care Code None Diagnoses delivery delivered O82
== END 2022-09-11 14:56 | disposition home or self-care (01) | DRG 788 ==
LOC: 4S1 07:02 → EDSTATUS 07:30 → 4E2 13:24